=== PATIENT | male | born 1980 | race Caucasian/White ===

== ENCOUNTER 2017-12-22 19:18 | Emergency (ER) | payer OTHER ==
[2017-12-22 19:56] VITALS: BP 137/95; PULSE 75; RESP 20; TEMP 97.8
--- NOTE | 2017-12-22 20:45 | ED ---
General Adult HPI - General Chief complaint: Dental/Oral Stated complaint: dental pain Time Seen by Provider: 12/22/17 20:32 Source: patient, RN notes reviewed Mode of arrival: ambulatory Limitations: no limitations - History of Present Illness Initial comments: Patient 37-year-old male presented to the emergency room today with a chief complaint of increased dental pain. Patient admits to poor dental hygiene. He does admit that he's had similar symptoms in the past. States she's tried to see the dentist. Does admit that symptoms started a few days ago. She tried [id number] medications with little relief. Denies any drainage or discharge. Patient denies any recent fever, chills, shortness of breath, chest pain, back pain, abdominal pain, nausea or vomiting, numbness or tingling, dysuria or hematuria, constipation or diarrhea, headaches or visual changes, or any other complaints. - Related Data Home Medications Medication Instructions Recorded Confirmed Multivitamins, Thera [Multivitamin 1 tab PO DAILY 12/22/17 12/22/17 (formulary)] Naproxen Sodium [Aleve] 440 mg PO DAILY PRN 12/22/17 12/22/17 QUEtiapine FUMARATE [SEROquel] 300 mg PO HS 12/22/17 12/22/17 Previous Rx's Medication Instructions Recorded Acetaminophen-Codeine 300-30mg 1 each PO Q6H PRN #8 tablet 12/22/17 [Tylenol #3] Penicillin V Potassium [Pen Vee K] 500 mg PO QID #40 tablet 12/22/17 Allergies Allergy/AdvReac Type Severity Reaction Status Date / Time No Known Allergies Allergy Verified 12/22/17 20:18 Review of Systems ROS Statement: Those systems with pertinent positive or pertinent negative responses have been documented in the HPI. ROS Other: All systems not noted in ROS Statement are negative. Past Medical History Past Medical History: No Reported History History of Any Multi-Drug Resistant Organisms: None Reported Additional Past Surgical History / Comment(s): abdominal sx Past Psychological History: Schizophrenia Smoking Status: Current every day smoker Past Alcohol Use History: None Reported Past Drug Use History: None Reported General Exam - General Exam Comments Initial Comments: General: The patient is awake and alert, in no distress, and does not appear acutely ill. Eye: Pupils are equal, round and reactive to light, extra-ocular movements are intact. No nystagmus. There is normal conjunctiva bilaterally. No signs of icterus. Ears, nose, mouth and throat: There are moist mucous membranes and no oral lesions. Multiple dental caries. Patient does have small white spot to the gum line over tooth #14. No fluctuant area. Neck: The neck is supple, there is no tenderness or JVD. Musculoskeletal: Normal ROM, no tenderness. Strength 5/5. Sensation intact. Pulses equal bilaterally 2+. Neurological: A&O x 3. CN II-XII intact, There are no obvious motor or sensory deficits. Coordination appears grossly intact. Speech is normal. Skin: Skin is warm and dry and no rashes or lesions are noted. Psychiatric: Cooperative, appropriate mood & affect, normal judgment. Limitations: no limitations Course Vital Signs 12/22/17 19:52 Temperature 97.8 F Pulse Rate 75 Respiratory 20 Rate Blood Pressure 137/95 O2 Sat by Pulse 97 Oximetry Medical Decision Making - Medical Decision Making Patient was started on antibiotics in emergency room with a short prescription of pain medication. Advised to follow-up with dentist. Disposition Clinical Impression: Dental abscess Disposition: HOME SELF-CARE Condition: Good Instructions: Dental Abscess (ED) Additional Instructions: Please follow-up dentist. Please use medications as prescribed and return to emergency room for any other concerns. Prescriptions: Acetaminophen-Codeine 300-30mg [Tylenol #3] 1 each PO Q6H PRN #8 tablet PRN Reason: Pain Penicillin V Potassium [Pen Vee K] 500 mg PO QID #40 tablet Is patient prescribed a controlled substance at d/c from ED?: No Referrals: None,Stated [Primary Care Provider] - 1-2 days Time of Disposition: 20:44
--- NOTE | 2017-12-22 20:49 | ED ---
Disposition Clinical Impression: Dental abscess Disposition: HOME SELF-CARE Condition: Good Instructions: Dental Abscess (ED) Additional Instructions: Please follow-up dentist. Please use medications as prescribed and return to emergency room for any other concerns. Prescriptions: Acetaminophen-Codeine 300-30mg [Tylenol #3] 1 each PO Q6H PRN #8 tablet PRN Reason: Pain Penicillin V Potassium [Pen Vee K] 500 mg PO QID #40 tablet Is patient prescribed a controlled substance at d/c from ED?: Yes If prescribed controlled substance>3 days was MAPS reviewed?: No When asked, does pt state using other controlled substances?: No Referrals: None,Stated [Primary Care Provider] - 1-2 days
== END 2017-12-22 20:56 | disposition home or self-care (01) ==
LOC: EC 19:18
DX: K04.7 Periapical abscess without sinus (principal); K02.9 Dental caries, unspecified; F20.9 Schizophrenia, unspecified; F17.200 Nicotine dependence, unspecified, uncomplicated; Z79.899 Other long term (current) drug therapy
CPT/HCPCS: 99282

== ENCOUNTER 2018-12-20 22:47 | Emergency (ER) | payer OTHER ==
[2018-12-20 22:57] VITALS: BP 157/88; PULSE 82; RESP 18; TEMP 97.8
[2018-12-20] MEDS ORDERED: PENICILLIN VK 500MG STARTER 4 TAB BTL PO STA (23:31)
[2018-12-20] MEDS ORDERED: IBUPROFEN 600 MG TAB PO STA (23:31)
--- NOTE | 2018-12-20 23:35 | ED ---
General Adult HPI - General Chief complaint: Dental/Oral Stated complaint: Dental Pain Time Seen by Provider: 12/20/18 22:59 Source: patient, RN notes reviewed Mode of arrival: ambulatory Limitations: no limitations - History of Present Illness Initial comments: 38-year-old male presents to the emergency department for a chief complaint of dental pain. Patient states this started approximately one hour prior to arrival. Patient does have a history of pain with this tooth however has not followed up with a dentist. Patient denies fevers or chills. Patient has not yet taken anything for the pain. Patient denies any sublingual swelling. Denies any difficulty swallowing. Denies any stiffness of the neck.Patient has no other complaints at this time including shortness of breath, chest pain, abdominal pain, nausea or vomiting, headache, or visual changes. - Related Data Home Medications Medication Instructions Recorded Confirmed Acetaminophen [Tylenol Extra 1,000 mg PO Q6H PRN 12/20/18 12/20/18 Strength] L.acidoph,Paracasei, B.lactis 1 cap PO DAILY 12/20/18 12/20/18 [Probiotic] Previous Rx's Medication Instructions Recorded Ibuprofen 800 mg PO Q8H PRN #20 tablet 12/20/18 Penicillin V Potassium [Pen Vee K] 500 mg PO Q6H 10 Days #40 tablet 12/20/18 Allergies Allergy/AdvReac Type Severity Reaction Status Date / Time No Known Allergies Allergy Verified 12/20/18 23:03 Review of Systems ROS Statement: Those systems with pertinent positive or pertinent negative responses have been documented in the HPI. ROS Other: All systems not noted in ROS Statement are negative. Past Medical History Past Medical History: No Reported History History of Any Multi-Drug Resistant Organisms: None Reported Additional Past Surgical History / Comment(s): abdominal sx Past Psychological History: Schizophrenia Smoking Status: Current every day smoker Past Alcohol Use History: None Reported Past Drug Use History: None Reported General Exam Limitations: no limitations General appearance: alert, in no apparent distress Head exam: Present: atraumatic, normocephalic, normal inspection Eye exam: Present: normal appearance, PERRL, EOMI. Absent: scleral icterus, conjunctival injection, periorbital swelling ENT exam: Present: normal exam, mucous membranes moist, TM's normal bilaterally, normal external ear exam. Absent: normal oropharynx (Patient has very poor dentition noted. Patient is noting pain in tooth 7, no dental abscess noted when inspecting or palpating gumline. This tooth is fractured which has been chronic.) Neck exam: Present: normal inspection. Absent: tenderness, meningismus, lymph adenopathy Respiratory exam: Present: normal lung sounds bilaterally. Absent: respiratory distress, wheezes, rales, rhonchi, stridor Cardiovascular Exam: Present: regular rate, normal rhythm, normal heart sounds. Absent: systolic murmur, diastolic murmur, rubs, gallop, clicks Neurological exam: Present: alert, oriented X3, CN II-XII intact Psychiatric exam: Present: normal affect, normal mood Course Vital Signs 12/20/18 22:54 Temperature 97.8 F Pulse Rate 82 Respiratory 18 Rate Blood Pressure 157/88 O2 Sat by Pulse 100 Oximetry Medical Decision Making - Medical Decision Making 38-year-old male presents to the emergency department for chief complaint of dental pain. It started approximately one hour prior to arrival. Patient has had pain in this tooth before but has not yet followed up with the dentist. On exam patient is very poor dentition in general. He is complaining of pain above tooth 7. There is no abscess noted. Patient will be started on penicillin. He will be given Motrin by his educated to eat food while taking the Motrin. He will follow-up with dentist in 1-2 days or return here if he has any worsening symptoms. He was [facility]. Disposition Clinical Impression: Pain, dental Disposition: HOME SELF-CARE Condition: Good Instructions (If sedation given, give patient instructions): Toothache (ED) Additional Instructions: Please take penicillin as directed. Take Motrin for pain. Make sure to eat food while taking Motrin. Follow-up with dentist in 1-2 days. Please return here to the emergency department if you have any worsening symptoms. [facility] Address: [address] [place] [address], [facility] Phone: Prescriptions: Ibuprofen 800 mg PO Q8H PRN #20 tablet PRN Reason: Pain Penicillin V Potassium [Pen Vee K] 500 mg PO Q6H 10 Days #40 tablet Is patient prescribed a controlled substance at d/c from ED?: No Time of Disposition: 23:28
== END 2018-12-21 00:10 | disposition home or self-care (01) ==
LOC: EC 22:47
DX: K08.89 Other specified disorders of teeth and supporting structures (principal); F17.200 Nicotine dependence, unspecified, uncomplicated; Z79.899 Other long term (current) drug therapy
CPT/HCPCS: 99282

== ENCOUNTER 2019-01-04 10:30 | Emergency (ER) | payer OTHER ==
[2019-01-04 10:37] VITALS: BP 140/99; PULSE 78; RESP 20; TEMP 98.1
--- NOTE | 2019-01-04 11:08 | ED ---
General Adult HPI - General Chief complaint: Psychiatric Symptoms Stated complaint: Mental health Time Seen by Provider: 01/04/19 10:35 Source: patient, RN notes reviewed Mode of arrival: ambulatory - History of Present Illness Initial comments: This a 38-year-old male who presents to the emergency room with past medical history of schizophrenia. Patient states he stopped taking his medications just prior to going to [facility] for 8 months last year. Patient states he got out is no longer Medications. Patient states he does not have a psychiatrist. Patient states he doesn't have a primary medical care doctor. Patient states he got very little sleep last night when he woke up today the voices that he normally is here's or considerably worse and were very demeaning to home and he was concerned and so was his 's I decided come emergency departments to see if he can expedite getting in to see someone whom I feel the right him a prescription. Patient denies any suicidal homicidal ideations. Patient denies any physical complaints today. - Related Data Home Medications Medication Instructions Recorded Confirmed Naproxen Sodium [Aleve] 220 mg PO BID 01/04/19 01/04/19 Allergies Allergy/AdvReac Type Severity Reaction Status Date / Time No Known Allergies Allergy Verified 01/04/19 11:02 Review of Systems ROS Statement: Those systems with pertinent positive or pertinent negative responses have been documented in the HPI. ROS Other: All systems not noted in ROS Statement are negative. Past Medical History Past Medical History: No Reported History History of Any Multi-Drug Resistant Organisms: None Reported Additional Past Surgical History / Comment(s): abdominal sx Past Psychological History: Schizophrenia Smoking Status: Current every day smoker Past Alcohol Use History: None Reported Past Drug Use History: None Reported General Exam - General Exam Comments Initial Comments: GENERAL: Patient is well-developed and well-nourished. Patient is nontoxic and well- hydrated and is in no acute distress. ENT: Neck is soft and supple. No significant lymphadenopathy is noted. Oropharynx is clear. Moist mucous membranes. Neck has full range of motion without eliciting any pain. EYES: The sclera were anicteric and conjunctiva were pink and moist. Extraocular movements were intact and pupils were equal round and reactive to light. Eyelids were unremarkable. PULMONARY: Unlabored respirations. Good breath sounds bilaterally. No audible rales rhonchi or wheezing was noted. CARDIOVASCULAR: There is a regular rate and rhythm without any murmurs gallops or rubs. ABDOMEN: Soft and nontender with normal bowel sounds. SKIN: Skin is clear with no lesions or rashes and otherwise unremarkable. NEUROLOGIC: Patient is alert and oriented x3. Cranial nerves II through XII are grossly intact. Motor and sensory are also intact. Normal speech, volume and content. Symmetrical smile. MUSCULOSKELETAL: Normal extremities with adequate strength and full range of motion. No lower extremity swelling or edema. No calf tenderness. LYMPHATICS: No significant lymphadenopathy is noted PSYCHIATRIC: Recent states he is having auditory hallucinations and very demeaning to him and much worse today than they have been. Patient denies suicidal or homicidal ideations Course Vital Signs 01/04/19 10:35 Temperature 98.1 F Pulse Rate 78 Respiratory 20 Rate Blood Pressure 140/99 O2 Sat by Pulse 100 Oximetry Medical Decision Making - Medical Decision Making [facility] has given the patient resources to follow up in the patient and are okay with this. - Lab Data Lab Results 01/04/19 Range/Units 10:47 Urine Opiates Screen Not Detected (NotDetected) Ur Oxycodone Screen Not Detected (NotDetected) Urine Methadone Screen Not Detected (NotDetected) Ur Propoxyphene Screen Not Detected (NotDetected) Ur Barbiturates Screen Not Detected (NotDetected) U Tricyclic Antidepress Not Detected (NotDetected) Ur Phencyclidine Scrn Not Detected (NotDetected) Ur Amphetamines Screen Not Detected (NotDetected) U Methamphetamines Scrn Not Detected (NotDetected) U Benzodiazepines Scrn Not Detected (NotDetected) Urine Cocaine Screen Not Detected (NotDetected) U Marijuana (THC) Screen Not Detected (NotDetected) Disposition Clinical Impression: Paranoid schizophrenia Disposition: HOME SELF-CARE Condition: Good Instructions (If sedation given, give patient instructions): Schizophrenia (ED) Is patient prescribed a controlled substance at d/c from ED?: No Referrals: None,Stated [Primary Care Provider] - 1-2 days Time of Disposition: 12:50
[2019-01-04 11:26] LABS: Amphetamine Screen,Urine Not Detected (NotDetected); Barbiturate Screen,Urine Not Detected (NotDetected); Benzodiazepines Screen,Urine Not Detected (NotDetected); Cocaine Screen,Urine Not Detected (NotDetected); Methadone Screen, Urine Not Detected (NotDetected); Opiate Screen,Urine Not Detected (NotDetected); Oxycodone Screen, Urine Not Detected (NotDetected); Phencyclidine Screen,Urine Not Detected (NotDetected); Tricyclic Antidepressant,Urine Not Detected (NotDetected); Urn Cannabinoid Scrn Not Detected (NotDetected)
== END 2019-01-04 13:00 | disposition home or self-care (01) ==
LOC: EC 10:30
DX: F20.0 Paranoid schizophrenia (principal); F17.200 Nicotine dependence, unspecified, uncomplicated; Z79.1 Long term (current) use of non-steroidal anti-inflammatories (NSAID)
CPT/HCPCS: 80306; 82075; 99284

== ENCOUNTER 2021-05-14 13:33 | Inpatient (IN) | payer MEDICAID, OTHER ==
--- NOTE | 2021-05-14 14:52 | ED ---
General Adult HPI - General Chief complaint: Psychiatric Symptoms Stated complaint: petition Time Seen by Provider: 05/14/21 14:32 Source: patient, RN notes reviewed, old records reviewed Mode of arrival: ambulatory Limitations: no limitations - History of Present Illness Initial comments: 40-year-old male history of paranoid schizophrenia presenting for mental health evaluation. Patient has been off his medication. He's had increased auditory hallucination. He has made threats to and nonspecific individual who is causing these voices in his head. He is accompanied by his . He has been petitioned for mental health evaluation. Patient calm and cooperative during my evaluation. - Related Data Home Medications Medication Instructions Recorded Confirmed No Known Home Medications 05/14/21 05/14/21 Allergies Allergy/AdvReac Type Severity Reaction Status Date / Time No Known Allergies Allergy Verified 05/14/21 15:51 Review of Systems ROS Statement: Those systems with pertinent positive or pertinent negative responses have been documented in the HPI. ROS Other: All systems not noted in ROS Statement are negative. Past Medical History Past Medical History: No Reported History History of Any Multi-Drug Resistant Organisms: None Reported Additional Past Surgical History / Comment(s): abdominal sx Past Psychological History: Schizophrenia Past Alcohol Use History: None Reported Past Drug Use History: None Reported General Exam Limitations: no limitations General appearance: alert, in no apparent distress Head exam: Present: atraumatic, normocephalic Eye exam: Present: normal appearance, PERRL ENT exam: Present: normal exam Neck exam: Present: normal inspection. Absent: tenderness, meningismus Respiratory exam: Present: normal lung sounds bilaterally. Absent: respiratory distress, wheezes Cardiovascular Exam: Present: regular rate, normal rhythm GI/Abdominal exam: Present: soft. Absent: distended, tenderness, guarding Extremities exam: Present: normal inspection, normal capillary refill. Absent: pedal edema Neurological exam: Present: alert, oriented X3, CN II-XII intact. Absent: motor sensory deficit Psychiatric exam: Absent: homicidal ideation, suicidal ideation Skin exam: Present: warm, dry, intact. Absent: cyanosis, diaphoretic Course Vital Signs 05/14/21 14:08 Temperature 98.6 F Pulse Rate 108 H Respiratory 19 Rate Blood Pressure 144/96 O2 Sat by Pulse 96 Oximetry - Reevaluation(s) Reevaluation #1: 05/14/21 14:51 Patient medically cleared awaiting EPS evaluation. Medical Decision Making - Medical Decision Making Patient had been evaluated by EPS and felt to require inpatient psychiatric evaluation treatment. I agree with this plan. Patient will be admitted to this institution. - Lab Data Lab Results 05/14/21 Range/Units 16:37 Urine Opiates Screen Not Detected (NotDetected) Ur Oxycodone Screen Not Detected (NotDetected) Urine Methadone Screen Not Detected (NotDetected) Ur Propoxyphene Screen Not Detected (NotDetected) Ur Barbiturates Screen Not Detected (NotDetected) U Tricyclic Antidepress Not Detected (NotDetected) Ur Phencyclidine Scrn Not Detected (NotDetected) Ur Amphetamines Screen Not Detected (NotDetected) U Methamphetamines Scrn Not Detected (NotDetected) U Benzodiazepines Scrn Not Detected (NotDetected) Urine Cocaine Screen Not Detected (NotDetected) U Marijuana (THC) Screen Not Detected (NotDetected) Disposition Clinical Impression: Psychosis Disposition: ADMITTED IP TO THIS [facility] Condition: Stable Is patient prescribed a controlled substance at d/c from ED?: No Referrals: None,Stated [Primary Care Provider] - 1-2 days Decision to Admit Reason: Admit from EC Decision Date: 05/14/21 Decision Time: 18:50
[2021-05-14 16:53] LABS: Amphetamine Screen,Urine Not Detected (NotDetected); Barbiturate Screen,Urine Not Detected (NotDetected); Benzodiazepines Screen,Urine Not Detected (NotDetected); Cocaine Screen,Urine Not Detected (NotDetected); Methadone Screen, Urine Not Detected (NotDetected); Opiate Screen,Urine Not Detected (NotDetected); Oxycodone Screen, Urine Not Detected (NotDetected); Phencyclidine Screen,Urine Not Detected (NotDetected); Tricyclic Antidepressant,Urine Not Detected (NotDetected); Urn Cannabinoid Scrn Not Detected (NotDetected)
[2021-05-14] MEDS ORDERED: ACETAMINOPHEN TAB 325 MG TAB PO PRN (23:05)
[2021-05-14] MEDS ORDERED: MAG HYDROX/AL HYDROX/SIMETH 30 ML CUP PO PRN (23:05)
[2021-05-14] MEDS ORDERED: LORazepam 1 MG TAB PO PRN (23:05)
[2021-05-14] MEDS ORDERED: MAGNESIUM HYDROXIDE 2,400 MG/10 ML CUP PO PRN (23:05)
[2021-05-14] MEDS ORDERED: LORazepam 2 MG/ML INJ IM PRN (23:08)
[2021-05-14] MEDS ORDERED: haloperidoL 5 MG TAB PO PRN (23:08)
[2021-05-14] MEDS ORDERED: HALOPERIDOL LACTATE 5 MG/ML 1 ML VIAL IM PRN (23:08)
[2021-05-15 07:21] LABS: Basophils % (A) 1 %; Eosinophils # (A) 0.3 k/uL (0-0.7); Eosinophils % (A) 5 %; HGB 15.6 gm/dL (13.0-17.5); Lymphocytes # (A) 1.9 k/uL (1.0-4.8); Lymphocytes % (A) 27 %; MCHC 33.1 g/dL (31.0-37.0); MCV 90.6 fL (80.0-100.0); Mean Platelet Volume 6.8; Monocytes # (A) 0.7 k/uL (0-1.0); Monocytes % (A) 9 %; Neutrophils # (A) 3.8 k/uL (1.3-7.7); Neutrophils % (A) 55 %; Platelet Count 336 k/uL (150-450); RBC 5.18 m/uL (4.30-5.90); RDW 12.9 % (11.5-15.5); WBC 6.9 k/uL (3.8-10.6)
[2021-05-15 07:30] LABS: ALT 20 U/L (4-49); AST 25 U/L (17-59); African American GFR (CKD) >90 (>60 ml/min/1.73 sqM); Albumin 3.9 g/dL (3.5-5.0); Alkaline Phosphatase 107 U/L (38-126); Anion Gap 7 mmol/L; Blood Urea Nitrogen 17 mg/dL (9-20); Calcium 9.8 mg/dL (8.4-10.2); Carbon Dioxide 23 mmol/L (22-30); Chloride 109 mmol/L (98-107); Glucose 94 mg/dL (74-99); Non-African American GFR(CKD) >90 (>60 ml/min/1.73 sqM); Potassium 4.9 mmol/L (3.5-5.1); Sodium 139 mmol/L (137-145); Total Protein 6.7 g/dL (6.3-8.2)
[2021-05-15] MEDS: NICOTINE 14MG/24HR PATCH TRANSDERM SCH (08:51)
[2021-05-15 12:39] LABS: Chol/HDL Ratio 4.06; Cholesterol 130 mg/dL (0-200); LDL Cholesterol,Calculated 81.8 mg/dL (0.0-131.0)
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
[2021-05-15 18:25] LABS: Hemoglobin A1C 5.3 % (4.0-6.0)
[2021-05-15] MEDS ORDERED: PALIPERIDONE 3 MG TAB.ER.24 PO SCH (21:00)
--- NOTE | 2021-05-16 01:37 | P.MDCNMH ---
History of Present Illness H&P Date: 05/16/21 Chief Complaint: Medical eval 40-year-old male no significant past medical history Comes in due to hearing voices with history of schizophrenia patient claims that the voices is not telling him anything he denies any suicidal or homicidal ideation He denies any medical concerns at this time Review of Systems Pertinent positives as noted in HPI. All other systems were reviewed and are negative Past Medical History Past Medical History: No Reported History History of Any Multi-Drug Resistant Organisms: None Reported Additional Past Surgical History / Comment(s): abdominal sx Past Psychological History: Schizophrenia Past Alcohol Use History: None Reported Past Drug Use History: None Reported - Past Family History Family Family Medical History: No Reported History Medications and Allergies Home Medications Medication Instructions Recorded Confirmed Type No Known Home Medications 05/14/21 05/14/21 History Allergies Allergy/AdvReac Type Severity Reaction Status Date / Time No Known Allergies Allergy Verified 05/14/21 15:51 Physical Exam Vitals: Vital Signs Temp Pulse Resp BP 05/15/21 06:24 97.5 F L 110 H 16 99/62 Constitutional: No acute distress, conversant, pleasant Eyes: Anicteric sclerae, moist conjunctiva, Pupils equal round reactive to light ENMT: NC/AT Oropharynx clear, no erythema, or exudates Neck: Supple, FROM, no masses, or JVD No carotid bruits No thyromegaly Lungs: Clear to auscultation Clear to percussion Normal respiratory effort, no accessory muscle use Cardiovascular: Heart regular in rate and rhythm, No murmurs, gallops, or rubs No peripheral edema Abdominal: Soft Nontender, no guarding, rebound or rigidity Abdomen moving with respiration Normoactive bowel sounds No hepatomegaly, No splenomegaly No palpable mass No abdominal wall hernia noted Skin: Normal temperature, tone, texture, turgor No induration No subcutaneous nodules No rash, lesions No ulcers Extremities: No digital cyanosis No clubbing Pedal pulses intact and symmetrical Radial pulses intact and symmetrical No calf tenderness Psychiatric: Alert and oriented to person, place and time Neuro Muscles Strength 5/5 in all 4 extremities Sensation to light touch grossly present throughout Cranial nerves II-XII grossly intact No focal sensory deficits Lymphatics: no palpable cervical or supraclavicular , or inguinal lymph nodes Cranial Nerve Examination - Cranial Nerves Cranial Nerve II- Optic: Intact Cranial Nerve III- Oculomotor: Intact Cranial Nerve IV- Trochlear: Intact Cranial Nerve V- Trigeminal: Intact Cranial Nerve - Abducens: Intact Cranial Nerve VII- Facial: Intact Cranial Nerve VIII- Auditory: Intact Cranial Nerve IX- Glossopharyngeal: Intact Cranial Nerve X- Vagus: Intact Cranial Nerve XI- Accessory: Intact Cranial Nerve XII- Hypoglossal: Intact Results CBC & Chem 7: 05/15/21 06:21 05/15/21 06:21 Labs: Abnormal Lab Results - Last 24 Hours (Table) 05/15/21 Range/Units 06:21 Chloride 109 H (98-107) mmol/L HDL Cholesterol 32.0 L (40.0-60.0) mg/dL TSH 0.333 L (0.465-4.680) mIU/L Assessment and Plan Assessment: Auditory hallucination Schizophrenia Patient per psych Low TSH Check free T4 Thank you for allowing us to participate in the care of this patient. We will follow peripherally. Do not hesitate to contact us with questions. Someone can be reached from the [facility] hospitalist group at all hours of the day a t [phone].
[2021-05-16] MEDS: NICOTINE 14MG/24HR PATCH TRANSDERM SCH (08:12)
--- NOTE | 2021-05-16 10:21 | P.PN ---
Progress Note - Text Progress Note Date: 05/16/21 Interval History: Patient was seen after speaking with his on the phone and was directable and agreeable to speak with technical report writer in the office. Patient appears to have a calm demeanor today and was more appropriate with technical report writer. He took the medication last night paliperidone and states that it has been helping him. He states that the voices are "a little bit quieter". He is not endorsing any paranoid thoughts today or not endorsing any delusions. He states that he is anxious about going home and was asking questions about outpatient treatment. He states that he was able to sleep better last night and has a fair appetite today. At this time patient denies any suicidal or homical ideations, intent or plan. Patient denies any visual hallucinations and denies any paranoia or delusions. Patient denies any side effects from the medications and has been compliant with meds. Mental Status Exam: General Appearance: Patient appears to be tall, thin, stated age is alert, directable, and attempts to cooperate. Patient appears to have fair hygiene and grooming. Behavior: Patient is seated without any agitated behavior. Attempts to be cooperative Speech: Patient's speech is fluent and nonpressured. Mood/Affect: Patient reports their mood is "a bit better", affect is congruent and constricted. Suicidality/Homicidality: Patient denies having any homicidal ideation intent or plan. Denies any suicidal ideations intent or plan Perceptions: Patient denies any visual hallucinations and experiencing auditory hallucinations. Though content/process: There is no evidence of any delusional thought content and thought process is linear and goal-directed. Not endorsing any paranoia today. Memory and concentration: AOX3, grossly intact for the purposes of this session. Judgment and insight: Fair Assessment Schizophrenia Nicotine dependence Plan: -Patient continues to meet criteria for inpatient psychiatric admission for symptom stabilization and safety. Patient has signed adult voluntary form and medication consent and was placed in patient's chart. -Medications: Increased paliperidone by mouth to 6 mg daily at bedtime for psychosis. -When necessary Ativan and Haldol for agitation/aggression. -NRT - nicotine patch -SW on board for discharge planning. Encouraged the patient to participate in milieu. Likely discharge tomorrow if patient is doing better psychiatrically back home.
[2021-05-16] MEDS: PALIPERIDONE 6 MG TAB.ER.24 PO SCH (20:39)
[2021-05-17] MEDS: NICOTINE 14MG/24HR PATCH TRANSDERM SCH (07:44)
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
[2021-05-17] MEDS: PALIPERIDONE 6 MG TAB.ER.24 PO SCH (20:35)
[2021-05-18] MEDS: NICOTINE 14MG/24HR PATCH TRANSDERM SCH (08:44)
[2021-05-18] MEDS ORDERED: PALIPERIDONE IM 234 MG/1.5 ML SYG IM ONE (10:30)
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
[2021-05-18] MEDS: PALIPERIDONE 6 MG TAB.ER.24 PO SCH (20:16)
[2021-05-19 06:53] VITALS: RESP 16; TEMP 97.9
[2021-05-19] MEDS: NICOTINE 14MG/24HR PATCH TRANSDERM SCH (08:04)
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
[2021-05-19] MEDS: PALIPERIDONE 6 MG TAB.ER.24 PO SCH (20:07)
[2021-05-20 07:08] VITALS: BP 115/66; PULSE 58
[2021-05-20] MEDS: NICOTINE 14MG/24HR PATCH TRANSDERM SCH (08:35)
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
== END 2021-05-20 11:05 | disposition home or self-care (01) | DRG 885 ==
LOC: EC 13:33 → 3MHU 22:06
PROVIDERS: ADMIT Psychiatry & Neurology Psychiatry; ATTEND Psychiatry & Neurology Psychiatry
DX: F20.0 Paranoid schizophrenia (principal); Z20.822 Contact with and (suspected) exposure to COVID-19; Z56.0 Unemployment, unspecified; F17.210 Nicotine dependence, cigarettes, uncomplicated; Z71.6 Tobacco abuse counseling
CPT/HCPCS: 80053; 80061; 80306; 82075; 83036; 84439; 84443; 85025; 87635; 99285